=== PATIENT | male | born 1970 | race African-American/Black ===

== ENCOUNTER 2021-04-08 13:21 | Emergency (ER) | payer OTHER ==
[2021-04-08 14:38] LABS: #Basophils 0.1 thou/uL (0.0-0.2); #Eosinphils 0.1 thou/uL (0.0-0.7); #Monocytes 0.4 thou/uL (0.11-0.59); #Neutrophils 1.9 thou/uL (1.40-6.50); %Basophils 1.9 % (0.0-1.0); %Eosinophils 1.6 % (0.0-10.0); %Lymphocytes 46.5 % (21.0-51.0); %Monocytes 7.9 % (0.0-10.0); %Neutrophils 42.1 % (42.0-75.0); Hemoglobin 14.3 g/dL (14.0-18.0); Mean Corpuscular HGB CONC 30.1 g/dL (32.0-36.0); Mean Corpuscular Hemoglobin 26.6 pg (27.0-31.0); Mean Corpuscular Volume 88.6 fL (78.0-98.0); Mean Platelet Volume 6.6 fL (7.4-10.4); Platelet Count 360 thou/uL (130-400); RBC Distribution Width 12.7 % (11.5-14.5); Red Blood Cell (RBC) Count 5.36 mill/uL (4.70-6.10); White Blood Cell (WBC) Count 4.4 thou/uL (4.8-10.8)
[2021-04-08 14:51] LABS: ALT (SGPT) 18 U/L (8-55); AST (SGOT) 16 U/L (5-34); Albumin 4.2 g/dL (3.5-5.0); Alkaline Phosphatase 59 U/L (40-110); Anion Gap 14 mmol/L (10-20); BUN (Urea Nitrogen) 10 mg/dL (8.4-25.7); Bilirubin, Total 0.7 mg/dL (0.2-1.2); Calc. Creatinine Clearance 0 mL/min (70-130); Carbon Dioxide 25 mmol/L (22-29); Chloride 105 mmol/L (98-107); Globulin 3.4 g/dL (2.4-3.5); Glucose 87 mg/dL (70-105); Lipase 12 U/L (8-78); Potassium 4.2 mmol/L (3.5-5.1); Protein, Total 7.6 g/dL (6.0-8.3); Sodium 140 mmol/L (136-145)
[2021-04-08] MEDS ORDERED: Sodium Chloride 0.9% 1,000 ML ONE (15:11)
[2021-04-08] MEDS ORDERED: Ketorolac Tromethamine 30 MG/ML VIAL ONE (15:11)
[2021-04-08] MEDS ORDERED: Metoclopramide HCl 10 MG/2 ML VIAL ONE (15:11)
== END 2021-04-08 15:43 | disposition home or self-care (01) ==
LOC: MADERS 13:21
DX: R53.1 Weakness (principal); R11.0 Nausea; I10 Essential (primary) hypertension
CPT/HCPCS: 71045; 80053; 83605; 83690; 85025; 93005; J1885; J2765; J7050

== ENCOUNTER 2021-06-21 10:58 | Emergency (ER) | payer OTHER ==
[2021-06-21] MEDS ORDERED: cefTRIAXone\\ROCEPHIN 1 GM VIAL ONE (11:53)
[2021-06-21] MEDS ORDERED: Lidocaine 1% 20 ML MDV ONE (11:53)
[2021-06-22 20:17] LABS: SARS-CoV-2 PCR by NAA Not Detected (NotDetected)
== END 2021-06-21 12:20 | disposition home or self-care (01) ==
LOC: MADERS 10:58
DX: J32.9 Chronic sinusitis, unspecified (principal); I10 Essential (primary) hypertension; Z20.822 Contact with and (suspected) exposure to COVID-19
CPT/HCPCS: 96372; 99284; J0696; J1040; U0003; U0005

== ENCOUNTER 2022-06-23 13:07 | Emergency (ER) | payer OTHER, SELFPAY ==
[~2022-06-23 13:07] MED LIST: Iopamidol 370 76% 100 ML VIAL ONE
[2022-06-23 14:14] LABS: #Basophils 0.1 thou/uL (0.0-0.2); #Eosinphils 0.1 thou/uL (0.0-0.7); #Lymphocytes 2.3 thou/uL (1.20-3.40); #Monocytes 0.6 thou/uL (0.11-0.59); #Neutrophils 2.7 thou/uL (1.40-6.50); %Basophils 1.9 % (0.0-1.0); %Lymphocytes 39.3 % (21.0-51.0); %Monocytes 9.5 % (0.0-10.0); %Neutrophils 47.3 % (42.0-75.0); Hemoglobin 14.5 g/dL (14.0-18.0); Mean Corpuscular Hemoglobin 27.6 pg (27.0-31.0); Mean Corpuscular Volume 88.8 fL (78.0-98.0); Mean Platelet Volume 6.6 fL (7.4-10.4); Platelet Count 347 thou/uL (130-400); RBC Distribution Width 13.9 % (11.5-14.5); Red Blood Cell (RBC) Count 5.25 mill/uL (4.70-6.10); White Blood Cell (WBC) Count 5.8 thou/uL (4.8-10.8)
[2022-06-23] MEDS ORDERED: Hydrochlorothiazide 25 MG TAB ONE (14:33)
[2022-06-23] MEDS ORDERED: Lisinopril 10 MG TAB ONE (14:33)
[2022-06-23 14:34] LABS: ALT (SGPT) 25 U/L (8-55); AST (SGOT) 23 U/L (5-34); Albumin 4.3 g/dL (3.5-5.0); Alkaline Phosphatase 70 U/L (40-110); Anion Gap 15 mmol/L (10-20); BUN (Urea Nitrogen) 10 mg/dL (8.4-25.7); Bilirubin, Total 1.1 mg/dL (0.2-1.2); Calc. Creatinine Clearance 0 mL/min (70-130); Calcium 9.4 mg/dL (7.8-10.44); Carbon Dioxide 28 mmol/L (22-29); Chloride 102 mmol/L (98-107); Estimated GFR 83; Globulin 3.8 g/dL (2.4-3.5); Glucose 93 mg/dL (70-105); Lipase 15 U/L (8-78); Magnesium 2.2 mg/dL (1.6-2.6); Potassium 4.2 mmol/L (3.5-5.1); Protein, Total 8.1 g/dL (6.0-8.3); Sodium 141 mmol/L (136-145)
[2022-06-23] MEDS ORDERED: Mag-Al Plus 1200 MG/1200 MG/120 MG/30 ML UDCUP ONE (14:59)
[2022-06-23] MEDS ORDERED: Lidocaine Viscous Sol 2% 15 ml UD Cup ONE (14:59)
== END 2022-06-23 15:09 | disposition home or self-care (01) ==
LOC: MADERS 13:07
DX: A08.4 Viral intestinal infection, unspecified (principal); I10 Essential (primary) hypertension
CPT/HCPCS: 74177; 80053; 83690; 83735; 85025; Q9967

== ENCOUNTER 2023-05-11 15:27 | Emergency (ER) | payer SELFPAY ==
[2023-05-11] MEDS ORDERED: Amlodipine 5 MG TAB ONE (16:35)
== END 2023-05-11 17:12 | disposition home or self-care (01) ==
LOC: MADERS 15:27
DX: I10 Essential (primary) hypertension (principal)
CPT/HCPCS: 99283

== ENCOUNTER 2023-07-14 14:59 | Emergency (ER) | payer SELFPAY ==
[2023-07-14] MEDS ORDERED: Acetaminophen 500 MG TAB ONE (15:47)
[2023-07-14] MEDS ORDERED: Ibuprofen 800 MG TAB ONE (15:47)
[2023-07-14] MEDS ORDERED: Cyclobenzaprine 10 MG TAB ONE (15:47)
[2023-07-14] MEDS ORDERED: Lidocaine 4% Patch ONE (15:47)
== END 2023-07-14 16:52 | disposition home or self-care (01) ==
LOC: MADERS 14:59
DX: M54.50 Low back pain, unspecified (principal); I10 Essential (primary) hypertension
CPT/HCPCS: 93005; 94760

== ENCOUNTER 2024-02-28 14:47 | Emergency (ER) | payer BC, SELFPAY ==
[2024-02-28] MEDS ORDERED: Ondansetron PF 4 MG/2 ML Vial ONE (15:16)
[2024-02-28 15:36] LABS: #Basophils 0.2 thou/uL (0.0-0.2); #Eosinphils 0.1 thou/uL (0.0-0.7); #Monocytes 0.6 thou/uL (0.11-0.59); #Neutrophils 2.6 thou/uL (1.40-6.50); %Basophils 2.8 % (0.0-1.0); %Eosinophils 2.1 % (0.0-10.0); %Monocytes 8.6 % (0.0-10.0); %Neutrophils 40.6 % (42.0-75.0); Hematocrit 50.9 % (42.0-52.0); Hemoglobin 15.1 g/dL (14.0-18.0); Mean Corpuscular HGB CONC 29.6 g/dL (32.0-36.0); Mean Corpuscular Hemoglobin 26.1 pg (27.0-31.0); Mean Corpuscular Volume 88.1 fl (78.0-98.0); Platelet Count 360 10x3/uL (130-400); RBC Distribution Width 13.3 % (11.5-14.5); Red Blood Cell (RBC) Count 5.78 mill/uL (4.70-6.10); White Blood Cell (WBC) Count 6.4 10x3/uL (4.8-10.8)
[2024-02-28 15:44] LABS: ALT (SGPT) 21 U/L (8-55); AST (SGOT) 20 U/L (5-34); Albumin 4.5 g/dL (3.5-5.0); Alkaline Phosphatase 68 U/L (40-110); Anion Gap 16 mmol/L (10-20); BUN (Urea Nitrogen) 8 mg/dL (8.4-25.7); Bilirubin, Total 0.8 mg/dL (0.2-1.2); Calc. Creatinine Clearance 0 mL/min (70-130); Calcium 9.5 mg/dL (7.8-10.44); Carbon Dioxide 25 mmol/L (22-29); Chloride 104 mmol/L (98-107); Estimated GFR 85; Globulin 3.9 g/dL (2.4-3.5); Glucose 87 mg/dL (70-105); Lipase 20 U/L (8-78); Potassium 4.1 mmol/L (3.5-5.1); Protein, Total 8.4 g/dL (6.0-8.3); Sodium 141 mmol/L (136-145)
== END 2024-02-28 16:07 | disposition home or self-care (01) ==
LOC: MADERS 14:47
DX: R11.2 Nausea with vomiting, unspecified (principal); R19.7 Diarrhea, unspecified; I10 Essential (primary) hypertension; Z79.899 Other long term (current) drug therapy
CPT/HCPCS: 80053; 83690; 85025; 96361; 96374; J2405

== ENCOUNTER 2024-03-19 13:12 | Emergency (ER) | payer BC | END 2024-03-19 13:32 | disposition home or self-care (01) | LOC: MADERS 13:12 | DX: J01.10 Acute frontal sinusitis, unspecified (principal); I10 Essential (primary) hypertension | CPT/HCPCS: 99283 ==